=== PATIENT | female | born 1980 | race Two or more races ===

== ENCOUNTER 2019-12-27 10:13 | Emergency (ER) | payer MEDICAID ==
[~2019-12-27] VITALS: Ht 162.6 cm; Wt 62.6 kg
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
--- NOTE | 2019-12-27 10:24 | NUR ---
SEEN AND EXAMINED BY .
[2019-12-27] MEDS ORDERED: IBUPROFEN 600 MG TABLET PO ONE ×2 (10:30)
--- NOTE | 2019-12-27 10:35 | NUR ---
URINE SPECIMEN COLLECTED AND SENT TO LAB.
--- NOTE | 2019-12-27 10:48 | NUR ---
PT IS WHEELED TO CT SCAN VIA [facility]
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
[2019-12-27 11:54] VITALS: BP 122/81
--- NOTE | 2019-12-27 11:54 | NUR ---
Patient discharged to home in stable condition. Written and verbal after care instructions given. Patient verbalizes understanding of instruction.
== END 2019-12-27 11:55 | disposition home or self-care (01) ==
LOC: ER 10:19
DX: S16.1XXA Strain of muscle, fascia and tendon at neck level, initial encounter (principal); V49.49XA Driver injured in collision with other motor vehicles in traffic accident, initial encounter; Y93.89 Activity, other specified; Y92.413 State road as the place of occurrence of the external cause; Y99.8 Other external cause status
CPT/HCPCS: 70450-TC; 72125-TC; 73630-TC; 84703-TC